=== PATIENT | male | born 2000 | race Caucasian/White ===

== ENCOUNTER 2020-09-01 15:09 | Emergency (ER) | payer SELFPAY ==
[~2020-09-01] VITALS: Ht 180.3 cm; Wt 79.0 kg
[2020-09-01 16:14] VITALS: BP 122/78
[2020-09-01] MEDS ORDERED: IBUPROFEN 600MG TABLET PO ONE (16:15)
[2020-09-01] MEDS ORDERED: IBUP-2030 MT (16:45)
== END 2020-09-01 18:06 | disposition home or self-care (01) ==
LOC: ER 15:09
DX: S62.300A Unspecified fracture of second metacarpal bone, right hand, initial encounter for closed fracture (principal); W01.0XXA Fall on same level from slipping, tripping and stumbling without subsequent striking against object, initial encounter; Y93.51 Activity, roller skating (inline) and skateboarding; Y92.89 Other specified places as the place of occurrence of the external cause; Y99.8 Other external cause status
CPT/HCPCS: 29125; 73130; 99283